=== PATIENT | female | born 1970 | race African-American/Black ===

== ENCOUNTER 2018-07-20 17:39 | Emergency (ER) | payer MEDICAID ==
[~2018-07-20] VITALS: Ht 170.2 cm; Wt 85.0 kg
[2018-07-20] MEDS ORDERED: VALS40TA11 PO (17:44)
[2018-07-20 19:03] VITALS: BP 148/84
[2018-07-20] MEDS: KETOROLAC 60MG/2ML VIAL IM ONE (19:03)
== END 2018-07-20 19:47 | disposition home or self-care (01) ==
LOC: ER 17:39
DX: M54.2 Cervicalgia (principal); I10 Essential (primary) hypertension; Z79.899 Other long term (current) drug therapy; V49.88XA Car occupant (driver) (passenger) injured in other specified transport accidents, initial encounter; Y93.89 Activity, other specified; Y92.89 Other specified places as the place of occurrence of the external cause; Y99.8 Other external cause status
CPT/HCPCS: 96372; 99283; J1885

== ENCOUNTER 2025-06-16 15:13 | Emergency (ER) | payer MEDICAID ==
[~2025-06-16] VITALS: Ht 165.1 cm; Wt 75.0 kg
[~2025-06-16 15:13] MED LIST: VALS40TA11 PO
[2025-06-16 15:33] VITALS: TEMP 36.8; O2SAT 98
[2025-06-16] MEDS ORDERED: METH4TAB95 MT (16:05)
[2025-06-16 16:40] VITALS: BP 139/96; PULSE 68; RESP 18; O2SAT 100
== END 2025-06-16 16:44 | disposition home or self-care (01) ==
LOC: ER 15:13
DX: R21 Rash and other nonspecific skin eruption (principal); I10 Essential (primary) hypertension; Z98.890 Other specified postprocedural states
CPT/HCPCS: 99283

== ENCOUNTER 2025-06-26 21:14 | Emergency (ER) | payer MEDICAID ==
[~2025-06-26] VITALS: Ht 162.6 cm; Wt 76.3 kg
[~2025-06-26 21:14] MED LIST changes: +METH4TAB95 MT
[2025-06-26 21:53] VITALS: TEMP 37; O2SAT 100
[2025-06-26] MEDS: KETOROLAC 15MG/ML VIAL IM ONE (22:53)
[2025-06-26] MEDS: LIDOCAINE 5% PATCH TOP SCH (22:53)
[2025-06-26] MEDS ORDERED: LIDO-53 TP (23:10)
[2025-06-26] MEDS ORDERED: NAPR-1176 MT (23:10)
[2025-06-26 23:35] VITALS: BP 146/87; PULSE 63; RESP 16; O2SAT 99
== END 2025-06-26 23:38 | disposition home or self-care (01) ==
LOC: ER 21:19
DX: M54.50 Low back pain, unspecified (principal); I10 Essential (primary) hypertension; Z98.890 Other specified postprocedural states
CPT/HCPCS: 71045; 96372; 99283; J1885; Z7610

== ENCOUNTER 2025-08-19 18:48 | Emergency (ER) | payer MEDICAID ==
[~2025-08-19] VITALS: Ht 162.6 cm; Wt 73.0 kg
[~2025-08-19 18:48] MED LIST changes: +LIDO-53 TP; +NAPR-1176 MT
[2025-08-19 19:04] VITALS: O2SAT 97
[2025-08-19] MEDS: KETOROLAC 30MG/ML VIAL IM ONE (20:28)
[2025-08-19 20:33] VITALS: BP 153/91; PULSE 75; RESP 20; TEMP 37.2; O2SAT 99
== END 2025-08-19 20:40 | disposition home or self-care (01) ==
LOC: ER 18:48
DX: S93.602A Unspecified sprain of left foot, initial encounter (principal); I10 Essential (primary) hypertension; Z98.890 Other specified postprocedural states; Z79.1 Long term (current) use of non-steroidal anti-inflammatories (NSAID); Z88.8 Allergy status to other drugs, medicaments and biological substances; X58.XXXA Exposure to other specified factors, initial encounter; Y93.89 Activity, other specified; Y92.89 Other specified places as the place of occurrence of the external cause; Y99.8 Other external cause status
CPT/HCPCS: 99284; 73610; 73630; 96372; J1885; A6449